=== PATIENT | female | born 1985 | race Caucasian/White ===

== ENCOUNTER 2020-10-28 23:01 | Emergency (ER) | payer MEDICAID ==
[~2020-10-28] VITALS: Ht 160 cm; Wt 61.2 kg
[2020-10-28 23:04] VITALS: BP 165/90
[2020-10-28] MEDS ORDERED: BACITRACIN OINT 500 UNITS/GM PKT TP ONE (23:15)
[2020-10-29] MEDS ORDERED: LIDOCAINE/EPI 1% 1:100000 20 ML VIAL INJ ONE (00:20)
[2020-10-29] MEDS ORDERED: BACI1PAC6 TP (00:25)
[2020-10-29 01:20] VITALS: BP 165/90
[2020-11-01 06:07] LABS: HEPATITIS A ANTIBODY IGM Negative (Negative); HEPATITIS B CORE AB TOTAL Negative (Negative); HEPATITIS B SURFACE ANTIBODY Reactive (.); HEPATITIS B SURFACE ANTIGEN Negative (Negative)
== END 2020-10-29 01:20 | disposition home or self-care (01) ==
LOC: MED 23:01
DX: S51.812A Laceration without foreign body of left forearm, initial encounter (principal); X58.XXXA Exposure to other specified factors, initial encounter; Y93.89 Activity, other specified; Y92.89 Other specified places as the place of occurrence of the external cause; Y99.8 Other external cause status
CPT/HCPCS: 12002; 36415; 73090; 86703; 86704; 86706; 86708; 86709; 86803; 87340; 90471; 90715; 99284; J2001